=== PATIENT | male | born 1955 | race Caucasian/White ===

== ENCOUNTER → 2017-04-02 | Outpatient (CLI) | payer OTHER ==
[~2017-04-02] MED LIST: ANUSOL SUPP1 SUP PR; CIPRO 500MG TA500 MG PO; LORTAB 5/500 501 TAB PO; VICODIN 5/500 T1 TAB PO
[2017-04-02 16:30] LABS: HEMOGLOBIN 15.6 g/dL (14.1-18.0); LYMPH # 1.5 K/mm3 (0.7-4.5)
[2017-04-02 17:23] LABS: BUN 26 mg/dL (7-18)
[2017-04-02 17:27] LABS: GFR (ESTIMATED) 75 ML/MIN (>60)
== END ==
LOC: LAB 14:36
PROVIDERS: Internal Medicine
DX: C18.9 Malignant neoplasm of colon, unspecified (principal)

== ENCOUNTER → 2017-04-07 | Outpatient (CLI) | payer OTHER ==
--- NOTE | 2017-04-12 09:59 | RADIOLOGY REPORT PS360 ---
CT CHEST W/ CONTRAST HISTORY: COLON CANCER Patient Age: 62 years: Male Ordering Physician: Kwabena Javier MD TECHNIQUE: Helical CT scanning performed through the chest following 75 cc Isovue-370. COMPARISON :12/11/2016 CT chest.. Also October 31, 2012 CT chest FINDINGS Lungs.. No new or significant lung nodule . No evidence of metastatic disease. Again see the ~5.8 mm lung nodule At the periphery the right lower lobe on axial image 43. Minimal calcification at its medial margin. This is unchanged since previous studies dating back to October 2012 Very Tiny 2.5 mm area of scarring or nodule at the periphery the right upper lobe on axial image 26 appears stable as well.. Most likely partially calcified tiny granuloma. Minor fibrotic changes are seen at the posterior lower lobes bilaterally. Stable, Unchanged. No pleural masses. No chest wall mass.. Only Scant pleural thickening at the posterior right lung base again noted and unchanged as well Mediastinum. Again see moderate size nodes along the right paratracheal region. These are best appreciated on the coronal image 47 but are not changed appreciably. Some the larger nodes here up to to 15 mm x 12 mm but appears stable since since November, and appears similar to May 2016 exam as well. There is also suggestion of stable 11 mm node at the right josué, with no significant change since May 2016 At the anterior mediastinum anterior to the brachiocephalic vein there is a elongated 17 mm x 6.5 mm node. Unchanged since previous November. Question incrementally larger versus May and October 2015 Great vessels appear satisfactory. IMPRESSION 1. No significant change since previous studies. No lung nodules. No Pulmonary metastatic disease. Long-term Stable small most likely partially calcified granulomas right lung 2. moderate mediastinal nodes warrant ongoing follow-up. No significant change -Numerous moderate size right peritracheal mediastinal lymph nodes appear stable. -Small node anterior mediastinum unchanged since since November, but question 1 mm incrementally larger versus 2016 exams.
--- NOTE | 2017-04-13 17:16 | RADIOLOGY REPORT PS360 ---
CT ABD PELVIS W/ CONTRAST HISTORY: COLON CANCER Patient Age: 62 years: Male Ordering Physician: Kwabena Javier MD TECHNIQUE: Helical CT scanning performed through abdomen pelvis. 75 cc Isovue 370 IV contrast utilized. COMPARISON :November 2016 FINDINGS Lung bases : Atelectasis posterior right lung base perhaps minor fibrosis here. Liver spleen pancreas adrenals gallbladder unremarkable. No bowel dilatation or obstruction. Kidneys-. No hydronephrosis nor mass. There is a small,commashaped nonobstructive calculus upper pole left kidney 4.5 mm height x3 mm diameter. No retroperitoneal nor mesenteric nor pelvic adenopathy. . appendix is not discretely visualized but no evidence of appendicitis . Terminal ileum appears. Normal moderate stool throughout colon. Pelvis. Upper normal wall thickness urinary bladder. Prostate normal size with central calcification Subtle bulging of fat left inguinal region may reflect some laxity of the left inguinal ring but no significant hernia. There are some postsurgical changes seen at the superior rectum. Anastomosis line seen here. No evidence of recurrent disease in this region or elsewhere by CT survey. No significant change since prior study No osseous lesions evident.. Mild degenerative changes &scant dextrocurvature L-spine. IMPRESSION: 1. Post surgical changes superior rectum near rectosigmoid junction. 2. No evidence of recurrent or metastatic disease. No significant change since previous study
== END ==
LOC: RAD 08:54
DX: C18.9 Malignant neoplasm of colon, unspecified (principal)
CPT/HCPCS: Q9967